=== PATIENT | male | born 1985 | race Hispanic/Latino ===

== ENCOUNTER 2018-07-24 18:14 | Emergency (ER) | payer OTHER ==
[~2018-07-24] VITALS: Ht 180.3 cm; Wt 65.8 kg
--- OUTSIDE RECORDS SUMMARY | 2018-07-24 18:16 | XMS REPORT ---
Author Author Anaid Busch Organization [employer] Address Unknown Phone Unavailable Care Team Providers Care Inspector Integrated Circuits Name Role Phone Anaid Busch CP Unavailable Allergies, Adverse Reactions, Alerts Substance Reaction Event Type N.K.D.A. Info Not Available Non Drug Allergy Problems Problem Type Condition Code Onset Dates Condition Status Problem Encounter for immunization Z23 Active Problem Depression screening negative Z13.89 Active Problem Well adult on routine health check Z00.00 Active Assessment Person consulting for explanation of examination or test finding Z71.2 Active Assessment Generalized abdominal pain R10.84 Active Problem Screening for lipid disorders Z13.220 Active Problem Screening for thyroid disorder Z13.29 Active Medications No Known Medications Results No Known Results Summary Purpose [employer] Submission
--- OUTSIDE RECORDS SUMMARY | 2018-07-24 18:16 | XMS REPORT ---
Author Author Norma Maher Organization [employer] Address Unknown Phone Unavailable Care Team Providers Care Rigging Engineer Name Role Phone Norma Maher CP Unavailable Allergies, Adverse Reactions, Alerts Substance Reaction Event Type N.K.D.A. Info Not Available Non Drug Allergy Problems Problem Type Condition Code Onset Dates Condition Status Assessment Allergic rhinitis J30.9 Active Problem Well adult on routine health check Z00.00 Active Problem Encounter for immunization Z23 Active Problem Allergic rhinitis J30.9 Active Problem Screening for thyroid disorder Z13.29 Active Assessment Chronic cough R05 Active Problem Depression screening negative Z13.89 Active Problem Screening for lipid disorders Z13.220 Active Medications Medication Code System Code Instructions Start Date End Date Status Dosage Tessalon Perles [facility] [address]-08 100 MG Orally Three times a day September 04, 2017 Active 1 capsule as needed Flonase [facility] [address]-17 50 MCG/ACT Nasally Once a day September 04, 2017 Active 1 spray in each nostril Bromfed DM [facility] [address]-36 30-2-10 MG/5ML Orally twice a day September 04, 2017 Active 10 ml as needed Results No Known Results Summary Purpose [employer] Submission
--- OUTSIDE RECORDS SUMMARY | 2018-07-24 18:16 | XMS REPORT ---
[facility] Address Unknown Phone Unavailable Care Team Providers Care Video Control Operator Name Role Phone Unavailable Unavailable Payers Payer Name Policy Type Policy Number Effective Date Expiration Date Problems This patient has no known problems. Allergies, Adverse Reactions, Alerts Allergy Name Allergy Type Status Severity Reaction(s) Onset Date Inactive Date Treating Clinician Comments No Known Allergies DA Active U 2018-04-04 00:00:00 No Known Allergies DA Active U 2017-01-28 00:00:00 Medications This patient has no known medications.
[2018-07-24] MEDS ORDERED: SODIUM CHLORIDE 0.9% 1000ML 1,000 ML IV ONE (19:45)
[2018-07-24] MEDS ORDERED: KETOROLAC TROMETHAMINE 30 MG/ML VIAL IV ONE (20:00)
[2018-07-24] MEDS ORDERED: ONDANSETRON HCL INJ 2MG/ML 2ML 2 MG/ML VIAL IV ONE (20:00)
[2018-07-24 20:15] LABS: BASOPHILS # (AUTO) 0.1 (0.0-0.1); BASOPHILS % 0.3 % (0.0-1.0); EOSINOPHILS % 0.1 % (0.0-6.0); HEMATOCRIT 42.1 % (38.2-49.6); HEMOGLOBIN 14.5 g/dL (14.0-18.0); LYMPHOCYTES # (AUTO) 1.4 (1.0-3.2); LYMPHOCYTES % 8.6 % (18.0-39.1); MEAN CORPUSCULAR HEMOGLOBIN 29.2 pg (28-32); MEAN CORPUSCULAR HGB CONC 34.4 g/dL (31-35); MEAN CORPUSCULAR VOLUME 84.9 fL (81-99); MONOCYTES # (AUTO) 0.6 (0.2-0.8); MONOCYTES % 3.9 % (4.4-11.3); NEUTROPHILS % 86.8 % (38.7-80.0); PLATELET COUNT 196 x10e3/uL (140-360); RED BLOOD COUNT 4.96 x10e6/uL (4.3-5.7); RED CELL DISTRIBUTION WIDTH 13.3 % (11.7-14.4)
[2018-07-24 20:28] LABS: ALANINE AMINOTRANSFERASE 18 IU/L (0-55); ALBUMIN 4.6 g/dL (3.5-5.0); ALBUMIN/GLOBULIN RATIO 1.4 (0.8-2.0); ALKALINE PHOSPHATASE 100 IU/L (40-150); ANION GAP 15.5 mmol/L (8-16); BLOOD UREA NITROGEN 17 mg/dL (7-26); BUN/CREATININE RATIO 15 (6-25); CALCIUM 9.9 mg/dL (8.4-10.2); CARBON DIOXIDE 25 mmol/L (22-29); CHLORIDE 103 mmol/L (98-107); CREATININE, SERUM 1.11 mg/dL (0.72-1.25); EST GLOMERULAR FILTRATION RATE > 60 ML/MIN (60-); GLUCOSE 115 mg/dL (74-118); POTASSIUM 3.5 mmol/L (3.5-5.1); SODIUM 140 mmol/L (136-145)
--- NOTE | 2018-07-24 20:41 | Diagnostic Imaging Report ---
EXAM: CT Abdomen and Pelvis WITHOUT contrast INDICATION: ^stone protocol ^[id number] ^1999 ^Y COMPARISON: None. TECHNIQUE: Abdomen and pelvis were scanned utilizing a multidetector helical scanner from the lung base to the pubic symphysis without administration of IV contrast. Absence of intravenous contrast decreases sensitivity for detection of focal lesions and vascular pathology. Coronal and sagittal reformations were obtained. Routine protocol was performed. IV CONTRAST: None. ORAL CONTRAST: Water RADIATION DOSE: Total DLP: 199.7 mGy*cm Estimated effective dose: (DLP x 0.015 x size factor) mSv COMPLICATIONS: None FINDINGS: LINES and TUBES: None. LOWER THORAX: Unremarkable HEPATOBILIARY: No focal hepatic lesions. No biliary ductal dilation. GALLBLADDER: No radio-opaque stones or sludge. No wall thickening. SPLEEN: No splenomegaly. PANCREAS: No focal masses or ductal dilatation. ADRENALS: No adrenal nodules KIDNEYS/URETERS: No hydronephrosis. No cystic or solid mass lesions. A 4 mm nonobstructing calcified stone is seen in the inferior pole of the left kidney on series 3, image 54. A 3 mm nonobstructing calcified stone is also seen in the distal left ureter at the ureterovesical junction on series 3, image 143. No calcified stones in the right kidney or right ureter. GI TRACT: No abnormal distention, wall thickening, or evidence of bowel obstruction. Appendix is normal. PELVIC ORGANS/BLADDER: Unremarkable. LYMPH NODES: No lymphadenopathy. VESSELS: Unremarkable. PERITONEUM / RETROPERITONEUM: No free air or fluid. BONES: Unremarkable. SOFT TISSUES: Unremarkable. IMPRESSION: Nonobstructing left distal ureteral and left renal stones. Signed by: Dr. Bernice Garcia M.D. on 07/24/2018 8:38 PM
[2018-07-24 21:11] LABS: BILIRUBIN,URINE NEGATIVE (NEGATIVE); CLARITY,URINE SL CLOUDY (CLEAR); COLOR,URINE YELLOW (YELLOW); KETONES,URINE TRACE (NEGATIVE); LEUKOCYTE ESTERASE ,URINE NEGATIVE (NEGATIVE); NITRITE,URINE NEGATIVE (NEGATIVE); PROTEIN,URINE DIPSTICK NEGATIVE (NEGATIVE); URINE UROBILINOGEN 0.2 mg/dL (0.2 - 1)
[2018-07-24 21:24] LABS: BACTERIA,URINE FEW /HPF; MUCUS,URINE MODERATE (RARE); RBC,URINE 21-50 /HPF (0-5)
[2018-07-24 22:26] VITALS: BP 128/88
== END 2018-07-24 23:00 | disposition home or self-care (01) ==
LOC: ER 18:14
DX: R10.32 Left lower quadrant pain (principal); R11.2 Nausea with vomiting, unspecified; M54.5 Low back pain; N20.1 Calculus of ureter
CPT/HCPCS: 36415; 74176; 80053; 81001; 85025; 96374; 96375; 99284; J1885; J2405; J7030